=== PATIENT | female | born 1945 | race African-American/Black ===

== ENCOUNTER 2018-06-19 08:45 | Day surgery (SDC) | payer MEDICARE ==
[2018-06-19 11:00] LABS: POTASSIUM 5.4 mmol/L (3.5-5.1)
[2018-06-19] MEDS ORDERED: ETOMIDATE 20 MG INJ (11:02)
[2018-06-19] MEDS ORDERED: LIDOCAINE 2% (SDV) 5 ML INJ (11:04)
== END 2018-06-19 13:33 | disposition home or self-care (01) ==
LOC: GIL 08:45
DX: R13.10 Dysphagia, unspecified (principal); K64.4 Residual hemorrhoidal skin tags; K29.70 Gastritis, unspecified, without bleeding; I13.2 Hypertensive heart and chronic kidney disease with heart failure and with stage 5 chronic kidney disease, or end stage renal disease; I50.9 Heart failure, unspecified; N18.6 End stage renal disease; Z99.2 Dependence on renal dialysis; Z95.0 Presence of cardiac pacemaker
CPT/HCPCS: 43239; 84132; 88305; 88312